=== PATIENT | female | born 1975 ===

== ENCOUNTER 2017-06-10 16:42 | Emergency (ER) | payer BC, OTHER ==
[2017-06-10 17:12] VITALS: BP 128/91; PULSE 82; RESP 16; TEMP 98.3; O2SAT 98
[2017-06-10] MEDS ORDERED: Sodium Chloride 0.9% 1,000 ML IV STA (17:42)
[2017-06-10 18:25] LABS: BASO # 0.01 K/mm3 (0.0-2.0); BASO % 0.2 % (0.0-3.0); EOS % 0.3 % (1.5-5.0); GRAN # 4.36 (1.4-6.5); GRAN % 66.9 % (50.0-68.0); HEMOGLOBIN 13.3 g/dL (12.0-16.0); LYMPH # 1.4 (1.2-3.4); LYMPH % 21.5 % (22.0-35.0); MEAN CELL VOLUME 85.6 fl (80.0-105.0); MEAN CORPUSCULAR HEMOGLOBIN 28.5 pg (25.0-35.0); MEAN CORPUSCULAR HGB CONC 33.3 g/dl (31.0-37.0); MEAN PLATELET VOLUME 9.4 fl (7.0-11.0); MONO # 0.7 (0.1-0.6); MONO % 11.1 % (1.0-6.0); RBC 4.66 10^6/uL (3.5-6.1); RED CELL DISTRIBUTION WIDTH 12.8 % (11.5-14.5); WHITE BLOOD COUNT 6.5 10^3/ul (4.5-11.0)
--- NOTE | 2017-06-10 18:35 | ED PDOC ---
Arrival/HPI - General Chief Complaint: Abdominal Pain Time Seen by Provider: 06/10/17 17:16 Historian: Patient - History of Present Illness Narrative History of Present Illness (Text): 06/10/17 18:28 42yo female with no PMhx present with complaint of epigastric abdominal pain, nausea and multiple episodes of nonbloody/bilious vomiting since last night. States vomiting started last night after eating. States she started having dry heaves for hours now. Epigastric pain started after vomiting. States she had one loose BM this evening. she otherwise denies diarrhea, constipation, fever, chills, chest pain, SOD, melena, hematemesis, sick contact, travel, any other complaint. Past Medical History - Provider Review Nursing Documentation Reviewed: Yes - Psychiatric Hx Psychophysiologic Disorder: No Hx Substance Use: No - Surgical History Hx Hysterectomy: Yes (PARTIAL) Family/Social History - Physician Review Nursing Documentation Reviewed: Yes Family/Social History: Unknown Family HX Smoking Status: Never Smoked Hx Alcohol Use: No Hx Substance Use: No Allergies/Home Meds Allergies/Adverse Reactions: Allergies acetaminophen [From Percocet] Allergy (Verified 06/10/17 17:06) VOMITING oxycodone [From Percocet] Allergy (Verified 06/10/17 17:06) VOMITING Review of Systems - Physician Review All systems were reviewed & negative as marked: Yes - Review of Systems Constitutional: Normal Eyes: Normal ENT: Normal Respiratory: Normal Cardiovascular: Normal Gastrointestinal: Abdominal Pain, Nausea, Vomiting. absent: Constipation, Hematochezia, Hematemesis Genitourinary Female: Normal Musculoskeletal: Normal Skin: Normal Neurological: Normal Endocrine: Normal Hemo/Lymphatic: Normal Psychiatric: Normal Physical Exam Vital Signs Reviewed: Yes Vital Signs Temp Pulse Resp BP Pulse Ox 06/10/17 17:07 98.3 F 82 16 128/91 H 98 Temperature: Afebrile Blood Pressure: Normal Pulse: Regular Respiratory Rate: Normal Appearance: Positive for: Well-Appearing, Non-Toxic, Comfortable Pain Distress: None Mental Status: Positive for: Alert and Oriented X 3 - Systems Exam Head: Present: Atraumatic, Normocephalic Pupils: Present: PERRL Extroacular Muscles: Present: EOMI Conjunctiva: Present: Normal Mouth: Present: Moist Mucous Membranes Neck: Present: Normal Range of Motion Respiratory/Chest: Present: Clear to Auscultation, Good Air Exchange. No: Respiratory Distress, Accessory Muscle Use Cardiovascular: Present: Regular Rate and Rhythm, Normal S1, S2. No: Murmurs Abdomen: Present: Tenderness (Epigastric tenderness), Normal Bowel Sounds, Other (soft). No: Distention, Peritoneal Signs, Rebound, Guarding, McBurney's Point Tender, Rovsing's Sign Present Back: Present: Normal Inspection Upper Extremity: Present: Normal Inspection. No: Cyanosis, Edema Lower Extremity: Present: Normal Inspection. No: Edema Neurological: Present: GCS=15, CN II-XII Intact, Speech Normal Skin: Present: Warm, Dry, Normal Color. No: Rashes Psychiatric: Present: Alert, Oriented x 3, Normal Insight, Normal Concentration Medical Decision Making ED Course and Treatment: 06/10/17 21:17 Pt complained of anxiety in ED. States the anxiety is making her heave in ED. Heaving and abdominal pain resolved in ED with Ativan. Lab was unremarkable. She did not give urine. result was DW the pt. She was DC home with lizet. She states she have appointment with her PMD this week and was advised to f/u with her. She requested Ativan rx and was advised to see her PMD for it. - Lab Interpretations Lab Results: 06/10/17 18:19 06/10/17 18:19 Lab Results 06/10/17 20:39: Urine Color Yellow, Urine Appearance Clear, Urine pH 6.0, Ur Specific [place] >= 1.030, Urine Protein Negative, Urine Glucose (UA) Negative, Urine Ketones 15 H, Urine Blood Small H, Urine Nitrate Negative, Urine Bilirubin Negative, Urine Urobilinogen 0.2, Ur Leukocyte Esterase Negative, Urine RBC 2 - 5, Urine WBC 0 - 2, Ur Epithelial Cells 4 - 5, Urine Bacteria Small 06/10/17 18:19: Sodium 141, Potassium 3.6, Chloride 107, Carbon Dioxide 26, Anion Gap 12, BUN 10, Creatinine 0.6 L, Est GFR ( Amer) > 60, Est GFR ( Non-Af Amer) > 60, Random Glucose 110, Calcium 9.8, Total Bilirubin 0.6, AST 22 , ALT 28, Alkaline Phosphatase 62, Total Protein 7.4, Albumin 4.2, Globulin 3.2 , Albumin/Globulin Ratio 1.3, Lipase 217 02/27/18 18:19: PT 10.3, INR 0.91 L, APTT 29.6 06/10/17 18:19: WBC 6.5, RBC 4.66, Hgb 13.3, Hct 39.9, MCV 85.6, MCH 28.5, MCHC 33.3, RDW 12.8, Plt Count 238, MPV 9.4, Gran % 66.9, Lymph % (Auto) 21.5 L, [place] % (Auto) 11.1 H, Eos % (Auto) 0.3 L, Baso % (Auto) 0.2, Gran # 4.36, Lymph # (Auto) 1.4, [place] # (Auto) 0.7 H, Eos # (Auto) 0.0, Baso # (Auto) 0.01 - Medication Orders Current Medication Orders: Discontinued Medications Famotidine (Pepcid) 20 mg IVP STAT STA Stop: 06/10/17 17:43 Last Admin: 06/10/17 18:21 Dose: 20 mg IVP Administration Document 06/10/17 18:21 [facility] (Rec: 06/10/17 18:[id number] Charges for Administration # of IVP Administrations 1 Sodium Chloride (Sodium Chloride 0.9%) 1,000 mls @ 1,000 mls/hr IV .Q1H STA Stop: 06/10/17 18:41 Last Admin: 06/10/17 18:21 Dose: 1,000 mls/hr eMAR Start Stop Document 06/10/17 18:21 [facility] (Rec: 06/10/17 18:[id number] Intravenous Solution Start Date 06/10/17 Start Time 18:21 End Date 06/10/17 Lorazepam (Ativan) 1 mg IVP ONCE ONE PRN Reason: Protocol Stop: 06/10/17 19:11 Last Admin: 06/10/17 19:39 Dose: 1 mg Comments: pt c/o anxiety. IVP Administration Document 06/10/17 19:39 [facility] (Rec: 06/10/17 19:40 [facility] [id number]) Charges for Administration # of IVP Administrations 1 Ondansetron HCl (Zofran Inj) 4 mg IVP STAT STA Stop: 06/10/17 17:43 Last Admin: 06/10/17 18:21 Dose: 4 mg IVP Administration Document 06/10/17 18:21 [email or web address] (Rec: 06/10/17 18:22 [facility] [id number]) Charges for Administration # of IVP Administrations 1 Disposition/Present on Arrival - Present on Arrival Any Indicators Present on Arrival: No History of DVT/PE: No History of Uncontrolled Diabetes: No Urinary Catheter: No History of Decub. Ulcer: No History Surgical Site Infection Following: None - Disposition Have Diagnosis and Disposition been Completed?: Yes Diagnosis: Abdominal pain, Anxiety Disposition: HOME/ ROUTINE Disposition Time: 20:45 Patient Plan: Discharge Patient Problems: Current Active Problems Problem Status Onset Abdominal pain Acute Anxiety Acute Condition: STABLE Discharge Instructions (ExitCare): Anxiety, Adult (DC), Acute Abdomen (Belly Pain), Adult (DC) Additional Instructions: Follow up with your doctor Follow BLAND diet for 24hrs Return to ED for any new symptoms Prescriptions: Famotidine [Pepcid] 40 mg PO DAILY #10 tab Ondansetron ODT [Zofran ODT] 4 mg PO Q6 #6 odt Referrals: Linn Urias DO [Primary Care Provider] - Follow up with primary Forms: [employer] ([place]olan)
[2017-06-10 18:37] LABS: INR 0.91 (0.93-1.08); PARTIAL THROMBOPLASTIN TIME 29.6 Seconds (25.1-36.5); PROTHROMBIN TIME 10.3 SECONDS (9.4-12.5)
[2017-06-10 18:38] LABS: ALB/GLOB RATIO 1.3 (1.1-1.8); ALBUMIN 4.2 g/dL (3.0-4.8); ALT/SGPT 28 U/L (7-56); AST/SGOT 22 U/L (14-36); BLOOD UREA NITROGEN 10 mg/dL (7-21); CALCIUM 9.8 mg/dL (8.4-10.5); GFR AFRICAN-AMERICAN > 60; GFR NON-AFRICAN AMERICAN > 60; LIPASE 217 U/L (23-300)
[2017-06-10 20:56] LABS: URINE BILIRUBIN NEGATIVE (NEGATIVE); URINE BLOOD SMALL (NEGATIVE); URINE GLUCOSE (UA) NEGATIVE (NEGATIVE); URINE LEUKOCYTE ESTERASE NEGATIVE Leu/uL (NEGATIVE); URINE NITRATE NEGATIVE (NEGATIVE); URINE PROTEIN NEGATIVE mg/dL (<30 mg/dL); URINE UROBILINOGEN 0.2 E.U./dL (<1 E.U./dL)
[2017-06-10 20:59] LABS: URINE APPEARANCE CLEAR (CLEAR); URINE COLOR YELLOW (YELLOW)
[2017-06-10 21:15] LABS: URINE BACTERIA SMALL (NEG); URINE WBC 0 - 2 /hpf (0-6)
== END 2017-06-10 21:00 | disposition home or self-care (01) ==
LOC: ED 16:42
DX: F41.9 Anxiety disorder, unspecified (principal); R10.9 Unspecified abdominal pain
CPT/HCPCS: 80053; 81001; 83690; 85025; 85610; 85730; 96374; 96375; 99283; J2060; J2405; J7040